=== PATIENT | male | born 1955 | race Caucasian/White ===

== ENCOUNTER 2018-06-01 05:14 | Emergency (ER) | payer MEDICARE ==
[2018-06-01] MEDS ORDERED: Sodium Chloride 0.9% 1000 ML 1,000 ML IV STA (05:37)
[2018-06-01] MEDS ORDERED: Hydromorphone 1 mg/ml Ampule IV ONE (05:37)
[2018-06-01] MEDS ORDERED: Zofran 4 MG/2 ML VIAL IV ONE (05:37)
[2018-06-01] MEDS ORDERED: Sodium Chloride 0.9% 1000 ML 1,000 ML ONE (05:43)
[2018-06-01] MEDS ORDERED: Zofran 4 MG/2 ML VIAL ONE (05:43)
[2018-06-01] MEDS ORDERED: Hydromorphone 1 mg/ml Ampule ONE (05:43)
[2018-06-01 05:46] LABS: BASOPHIL % 0.3 % (0.0-0.4); Basophil (Absolute #) 0.03 (0-0.4); Eosinophil (Absolute #) 0.19 (0-0.5); Granulocyte Absolute (ANC) 6.37 (1.4-6.9); Granulocytes % 67.2 % (36.0-66.0); Hematocrit 44.7 % (42-50); Lymphocyte (Absolute #) 1.95 (1.0-4.6); Lymphocytes % 20.5 % (24.0-44.0); Mean Corpuscular Hemoglobin 28.5 pg (26-32); Mean Corpuscular Hgb Concent. 33.6 g/dl (32-36); Mean Platelet Volume 10.1 fl (6-9.5); Monocyte (Absolute #) 0.95 (0.0-1.3); Platelet Count 198 K/mm3 (150-450); Red Blood Count 5.26 M/mm3 (4.1-5.6); Red Cell Distribution Width 12.9 % (11.5-14.0); White Blood Count 9.5 K/mm3 (4.0-10.5)
--- NOTE | 2018-06-01 05:52 | ERPHSYRPT ---
- History of Present Illness Historian: patient Exam Limitations: clinical condition (PATIENT ) Patient Subjective Stated Complaint: woke up with pain in the right lower abdomen Triage Nursing Assessment: Pt arrived by EMS with c/o waking up with pain in the lower right quadrant of abdomen, hx of kidney stones, pain with palpation, unsure if radiates to the back due to chronic back pain, bowel sounds heard in all 4 quadrants Timing/Duration: yesterday Activities at Onset: none Quality: sharpness, stabbing Abdominal Pain Onset Location: RLQ, generalized abdomen Pain Radiation: no radiation Severity of Pain-Max: moderate Severity of Pain-Current: moderate Modifying Factors: Improves With: nothing, analgesics Associated Symptoms: back, nausea Hx Tetanus, Diphtheria Vaccination/Date Given: Yes Hx Influenza Vaccination/Date Given: No Hx Pneumococcal Vaccination/Date Given: No <CHERYL SANCHEZ - Last Filed: 06/01/18 06:53> <HARMAN RUDD - Last Filed: 06/01/18 07:21> - History of Present Illness Time Seen by Provider: 06/01/18 05:30 Physician History: PATIENT WITH HISTORY OF KIDNEY STONES, DEGENERATIVE DISC DISEASE, COMPLAINS OF RIGHT LOWER ABDOMINAL PAINS SINCE 2129, ASSOCIATED WITH NAUSEA, PAIN SCALE 7/10. DENIES FEVER, CHILLS, URINARY SYMPTOMS. PATIENT HAS HAD PREVIOUS LITHROTRIPSY AND RENAL STENT INSERTION. (CHERYL SANCHEZ) Allergies/Adverse Reactions: No Known Drug Allergies Allergy (Verified 06/01/18 05:25) Home Medications: Hydrocodone/Acetaminophen [[place] 5-325 Tablet] 1 each PO Q6H 06/01/18 [History] - Review of Systems Constitutional: No Fever, No Chills Eyes: No Symptoms Ears, Nose, & Throat: No Symptoms Respiratory: No Symptoms, No Cough, No Dyspnea Cardiac: No Symptoms, No Chest Pain, No Edema, No Syncope Abdominal/Gastrointestinal: Abdominal Pain, No Nausea, No Vomiting, No Diarrhea Genitourinary Symptoms: No Symptoms, No Dysuria Musculoskeletal: No Symptoms, No Back Pain, No Neck Pain Skin: No Rash Neurological: No Dizziness, No Focal Weakness, No Sensory Changes Psychological: No Symptoms Endocrine: No Symptoms All Other Systems: Reviewed and Negative <CHERYL SANCHEZ - Last Filed: 06/01/18 06:53> - Past Medical History Pertinent Past Medical History: Yes Neurological History: No Pertinent History ENT History: No Pertinent History Cardiac History: No Pertinent History, Myocardial Infarction ([place]), Other Respiratory History: No Pertinent History Endocrine Medical History: No Pertinent History Musculoskeletal History: No Pertinent History GI Medical History: No Pertinent History, GI Bleed History: No Pertinent History Psycho-Social History: No Pertinent History Male Reproductive Disorders: No Pertinent History Other Medical History: kidney stones x 3,mvp, reports heart attack years ago - Past Surgical History Past Surgical History: Yes Neuro Surgical History: No Pertinent History Cardiac: No Pertinent History Respiratory: No Pertinent History Gastrointestinal: Appendectomy, Bowel Surgery Genitourinary: Other Musculoskeletal: Orthopedic Surgery Male Surgical History: No Pertinent History Other Surgical History: Pt states "i had to have ,because of infection, some of my bowel and piece of the bladder removed and also appy at the same time". States "kyphoplasty L-3 and either L-1 or 2 2015 - Social History Smoking Status: Current every day smoker How long have you smoked: 50 yrs Exposure to second hand smoke: Yes Drug Use: none Patient Lives Alone: Yes <LAURACHERYL Filed: 06/01/18 06:53> - Physical Exam General Appearance: moderate distress Eye Exam: PERRL/EOMI, eyes nml inspection Ears, Nose, Throat Exam: normal ENT inspection, pharynx normal, moist mucous membranes Neck Exam: normal inspection, non-tender, supple, full range of motion Respiratory Exam: normal breath sounds, lungs clear, No respiratory distress Cardiovascular Exam: regular rate/rhythm, normal heart sounds Gastrointestinal/Abdomen Exam: soft, normal bowel sounds, tenderness (RIGHT LOWER QUAD TENDERNESS), No mass Back Exam: normal inspection, normal range of motion, No CVA tenderness, No vertebral tenderness Extremity Exam: normal inspection, normal range of motion, pelvis stable Neurologic Exam: alert, oriented x 3, cooperative, normal mood/affect, nml cerebellar function, sensation nml, No motor deficits Skin Exam: normal color, warm, dry SpO2 Interpretation: normal SpO2: 97 Oxygen Delivery: Room Air <LAURACHERYL Filed: 06/01/18 06:53> - Nursing Vital Signs Nursing Vital Signs: Initial Vital Signs Temperature 97.9 F 06/01/18 05:16 Pulse Rate 86 06/01/18 05:16 Blood Pressure 178/106 06/01/18 05:16 O2 Sat by Pulse Oximetry 97 06/01/18 05:16 Pain Scale Pain Intensity 8 <CHERYL SANCHEZ - Last Filed: 06/01/18 06:53> - Course Nursing assessment & vital signs reviewed: Yes <HRAMAN RUDD - Last Filed: 06/01/18 07:21> Ordered Tests: Active Orders 24 hr Category Date Time Status Clean Catch Urine Specimen STAT Care 06/01/18 05:37 Active IV Insertion STAT Care 06/01/18 05:37 Active ABDOMEN AND PELVIS W/0 CONTRAS [CT] Stat Exams 06/01/18 05:38 Taken AMYLASE Stat Lab 06/01/18 05:25 Completed BLOOD CULTURE Stat Lab 06/01/18 05:58 Received CBC W DIFF Stat Lab 06/01/18 05:25 Completed CMP Stat Lab 06/01/18 05:25 Completed LIPASE Stat Lab 06/01/18 05:25 Completed UA W/RFX UR CULTURE Stat Lab 06/01/18 06:50 Ordered Medication Summary Generic Name Dose Route Start Last Admin Trade Name Freq PRN Reason Stop Dose Admin Sodium Chloride 1,000 mls @ 500 mls/hr 06/01/18 05:37 06/01/18 05:46 Sodium Chloride 0.9% 1000 Ml IV 06/01/18 07:36 500 mls/hr .Q2H STA Administration Discontinued Medications Generic Name Dose Route Start Last Admin Trade Name Freq PRN Reason Stop Dose Admin Hydromorphone HCl 1 mg 06/01/18 05:37 06/01/18 05:47 Hydromorphone 1 Mg/Ml Ampule IV 06/01/18 05:38 1 mg STAT ONE Administration Hydromorphone HCl Confirm 06/01/18 05:43 Hydromorphone 1 Mg/Ml Ampule Administered 06/01/18 05:44 Dose 1 mg .ROUTE .STK-MED ONE Sodium Chloride Confirm 06/01/18 05:43 Sodium Chloride 0.9% 1000 Ml Administered 06/01/18 05:44 Dose 1,000 mls @ ud .ROUTE .STK-MED ONE Ondansetron HCl 4 mg 06/01/18 05:37 06/01/18 05:47 Zofran 4 Mg/2 Ml Vial IV 06/01/18 05:38 4 mg STAT ONE Administration Ondansetron HCl Confirm 06/01/18 05:43 Zofran 4 Mg/2 Ml Vial Administered 06/01/18 05:44 Dose 4 mg .ROUTE .STK-MED ONE Lab/Rad Data: Laboratory Result Diagrams 06/01/18 05:25 06/01/18 05:25 Laboratory Results 06/01/18 06/01/18 Range/Units 05:25 05:25 WBC 9.5 (4.0-10.5) K/mm3 RBC 5.26 (4.1-5.6) M/mm3 Hgb 15.0 (12.5-18.0) gm/dl Hct 44.7 (42-50) % MCV 85.0 (78-100) fl MCH 28.5 (26-32) pg MCHC 33.6 (32-36) g/dl RDW 12.9 (11.5-14.0) % Plt Count 198 (150-450) K/mm3 MPV 10.1 H (6-9.5) fl Gran % 67.2 H (36.0-66.0) % Eos # (Auto) 0.19 (0-0.5) Absolute Lymphs (auto) 1.95 (1.0-4.6) Absolute Monos (auto) 0.95 (0.0-1.3) Lymphocytes % 20.5 L (24.0-44.0) % Monocytes % 10.0 (0.0-12.0) % Eosinophils % 2.0 (0.00-5.0) % Basophils % 0.3 (0.0-0.4) % Absolute Granulocytes 6.37 (1.4-6.9) Basophils # 0.03 (0-0.4) Sodium 138 (137-145) mmol/L Potassium 3.6 (3.5-5.1) mmol/L Chloride 103 (98-107) mmol/L Carbon Dioxide 26 (22-30) mmol/L Anion Gap 11.8 (5-15) MEQ/L BUN 15 (9-20) mg/dL Creatinine 0.92 (0.66-1.25) mg/dL Estimated GFR > 60.0 ML/MIN Glucose 95 (74-106) mg/dL Calcium 9.0 (8.4-10.2) mg/dL Total Bilirubin 0.60 (0.2-1.3) mg/dL AST 50 (17-59) U/L ALT 39 (0-50) U/L Alkaline Phosphatase 116 (38-126) U/L Serum Total Protein 6.7 (6.3-8.2) g/dL Albumin 4.0 (3.5-5.0) g/dL Amylase 84 (30-110) U/L Lipase 464 H (23-300) U/L ct scan abd/pelvis-mild right hydronephrosis and hydroureter with 3mm prox right ureteral stone (HARMAN RUDD) <CHERYL SANCHEZ - Last Filed: 06/01/18 06:53> - Progress Counseled pt/family regarding: lab results, diagnosis, need for follow-up <HARMAN RUDD - Last Filed: 06/01/18 07:21> - Progress Progress Note: 06/01/18 06:53 IV NORMAL SALINE 500ML/HR, ZOFRAN 4MG, DILAUDID 1MG IV, PAIN MARKEDLY IMPROVED. 06/01/18 07:00, PATIENT ENDORSED TO DR RUDD AT 0700 (CHERYL SANCHEZ) 06/01/18 07:17 pt very comfortable. (HARMAN RUDD) <CHERYL SANCHEZ - Last Filed: 06/01/18 06:53> - Departure Time of Disposition: 07:18 Departure Disposition: Home Critical Care Time: No <HARMAN RUDD - Last Filed: 06/01/18 07:21> - Departure Clinical Impression: Ureterolithiasis Condition: Stable Referrals: CLINTON JOHNSON [Primary Care Provider] - Additional Instructions: drink plenty of fluids. use your hydrocodone as prescribed. follow up with urologist for further management.
[2018-06-01 05:58] LABS: ALKALINE PHOSPHATASE 116 U/L (38-126); AMYLASE 84 U/L (30-110); ANION GAP 11.8 MEQ/L (5-15); BLOOD UREA NITROGEN 15 mg/dL (9-20); CHLORIDE 103 mmol/L (98-107); Carbon Dioxide 26 mmol/L (22-30); Creatinine 1 0.92 mg/dL (0.66-1.25); Glucose 95 mg/dL (74-106); LIPASE 464 U/L (23-300); Potassium 3.6 mmol/L (3.5-5.1); SGOT/AST 50 U/L (17-59); SGPT/ALT 39 U/L (0-50); SODIUM 138 mmol/L (137-145); Total Protein 6.7 g/dL (6.3-8.2)
[2018-06-01 07:11] LABS: Appearance CLOUDY (CLEAR); Bilirubin NEGATIVE (NEGATIVE); Blood LARGE Ery/ul (0-5); Glucose NEGATIVE (NEGATIVE); Ketones NEGATIVE (NEGATIVE); Leukocyte Esterase NEGATIVE (NEGATIVE); Nitrite NEGATIVE (NEGATIVE); Protein,Urine Dip 100 (Negative); Specific Gravity 1.023 (1.005-1.025); Urobilinogen NEGATIVE mg/dL (0-1)
[2018-06-01 08:05] VITALS: BP 166/86; PULSE 88; O2SAT 94
--- NOTE | 2018-06-01 09:36 | XRAY ---
Indication: Right lower quadrant pain. History of stones. Multiple contiguous axial images obtained through the abdomen and pelvis without contrast using renal stone protocol. Comparison: March 11, 2013. Lung bases demonstrates minimal bibasilar dependent atelectasis with stable tiny left posterior calcified granuloma. No infiltrate or effusion. Heart is not enlarged. There is now a 3 mm calculus in the proximal right ureter, approximately L3 level with mild hydronephrosis and mild perinephric stranding. Stable nonobstructing left renal micro-calculus. Noncontrasted stomach and bowel loops appear nonobstructed. Previous reported appendectomy. Again mild scattered descending and sigmoid diverticulosis. No free fluid/air. Remaining liver, gallbladder, pancreas, spleen, adrenal glands, kidneys, ureters, and bladder appear unremarkable for noncontrast exam. There remains mild aortoiliac calcifications without AAA. Osseous structures intact with stable L5-S1 degenerative changes. Interval L1/L2 kyphoplasty with right L1/L2 cement material extending beyond the anterior bony cortex. Stable small fatty umbilical hernia. Impression: 1. New 3 mm proximal right ureter calculus producing obstructive uropathy as detailed. Stable nonobstructing left renal micro-calculus. 2. Stable colonic diverticulosis and small fatty umbilical hernia. 3. Interval L1/L2 kyphoplasty. Comment: Preliminary interpretation was made by [facility]. No critical discrepancy. CT DI 22.89
== END 2018-06-01 08:02 | disposition home or self-care (01) ==
LOC: ED 05:14
DX: N13.2 Hydronephrosis with renal and ureteral calculous obstruction (principal); Z87.442 Personal history of urinary calculi
CPT/HCPCS: 36000; 36415; 74176; 80053; 81001; 82150; 83690; 85025; 87040; 87086; 96360; 96361; 96374; 96375; 99284; J1170; J2405

== ENCOUNTER 2019-10-18 10:46 | Emergency (ER) | payer MEDICARE ==
[2019-10-18] MEDS ORDERED: TYLENOL 325 MG PO ONE (11:19)
[2019-10-18] MEDS ORDERED: DUONEB 0.5-3 MG/3 ml Neb IH ONE ×2 (11:20→11:30)
[2019-10-18] MEDS ORDERED: solu-MEDROL 125 MG IV ONE (11:20)
--- NOTE | 2019-10-18 11:22 | ERPHSYRPT ---
- History of Present Illness Time Seen by Provider: 10/18/19 11:11 Source: patient Exam Limitations: no limitations Patient Subjective Stated Complaint: states since tuesday has had a cough and fever. also having sharp pain under left scapula from coughing. states cough is nonproductive. Triage Nursing Assessment: ambulated to room per self. skin w/d, color normal. resp nonlabored. dry occasional cough noted. Physician History: 64 years old male with history of tobacco abuse presented in the ER with chief complaint of fever chills, nasal congestion/sore throat and worsening dry hacking cough for the last 4 days. Patient has been using [id number] meds with no significant relief. Because of repeated coughing he is having chest soreness and feels as if he pulled his back muscles as well. Denies any abdominal pain nausea or vomiting. Minimal shortness of breath which is not any worse than usual. Denies any chest pain otherwise. No palpitations. Timing/Duration: day(s) (4) Cough Quality/Degree: moderate, dry cough Possible Cause: no prior episodes Associated Symptoms: chest pain/soreness, cough, muscle aches, nasal congestion Allergies/Adverse Reactions: No Known Drug Allergies Allergy (Verified 10/18/19 11:08) Hx Tetanus, Diphtheria Vaccination/Date Given: Yes Hx Influenza Vaccination/Date Given: No Hx Pneumococcal Vaccination/Date Given: No - Review of Systems Constitutional: Fever, Chills, Fatigue, Malaise Eyes: No Symptoms Ears, Nose, & Throat: No Symptoms Respiratory: No Symptoms, Cough, Dyspnea Cardiac: No Symptoms Abdominal/Gastrointestinal: No Symptoms Genitourinary Symptoms: No Symptoms Musculoskeletal: Back Pain, Myalgias Skin: No Symptoms Neurological: No Symptoms Psychological: No Symptoms Endocrine: No Symptoms Hematologic/Lymphatic: No Symptoms Immunological/Allergic: No Symptoms - Past Medical History Pertinent Past Medical History: Yes Neurological History: No Pertinent History ENT History: No Pertinent History Cardiac History: No Pertinent History, Myocardial Infarction ([place]), Other Respiratory History: No Pertinent History Endocrine Medical History: No Pertinent History Musculoskeletal History: No Pertinent History GI Medical History: No Pertinent History, GI Bleed History: No Pertinent History Psycho-Social History: No Pertinent History Male Reproductive Disorders: No Pertinent History Other Medical History: kidney stones x 3,mvp, reports heart attack years ago - Past Surgical History Past Surgical History: Yes Neuro Surgical History: No Pertinent History Cardiac: No Pertinent History Respiratory: No Pertinent History Gastrointestinal: Appendectomy, Bowel Surgery Genitourinary: Other Musculoskeletal: Orthopedic Surgery Male Surgical History: No Pertinent History Other Surgical History: Pt states "i had to have ,because of infection, some of my bowel and piece of the bladder removed and also appy at the same time". States "kyphoplasty L-3 and either L-1 or 2 2015 - Social History Smoking Status: Former smoker How long have you smoked: 50 yrs Exposure to second hand smoke: No Drug Use: none Patient Lives Alone: Yes - Nursing Vital Signs Nursing Vital Signs: Initial Vital Signs Temperature 100.4 F 10/18/19 10:57 Pulse Rate 106 H 10/18/19 10:57 Respiratory Rate 18 10/18/19 10:57 Blood Pressure 166/93 10/18/19 10:57 O2 Sat by Pulse Oximetry 95 10/18/19 10:57 Pain Scale Pain Intensity 0 - Physical Exam General Appearance: no apparent distress Eye Exam: PERRL/EOMI, eyes nml inspection Ears, Nose, Throat Exam: pharyngeal erythema Neck Exam: normal inspection, non-tender, supple, full range of motion Respiratory Exam: normal breath sounds, lungs clear, respiratory distress Cardiovascular Exam: regular rate/rhythm, normal heart sounds Gastrointestinal/Abdomen Exam: soft, normal bowel sounds Back Exam: muscle spasm, No CVA tenderness Extremity Exam: normal inspection Neurologic Exam: alert, oriented x 3, cooperative Skin Exam: normal color SpO2 Interpretation: normal SpO2: 95 O2 Delivery: Room Air - Course Nursing assessment & vital signs reviewed: Yes EKG Interpreted by Me: RATE (99), NORMAL AXIS, NORMAL INTERVALS, NORMAL QRS, Q- wave (inf leads) Ordered Tests: Active Orders 24 hr Category Date Time Status EKG-ER Only STAT Care 10/18/19 11:23 Active IV Insertion STAT Care 10/18/19 11:19 Active CHEST 2 VIEWS (PA AND LAT) Stat Exams 10/18/19 11:19 Completed CBC W DIFF Stat Lab 10/18/19 11:34 Completed CMP Stat Lab 10/18/19 11:34 Completed Lactic Acid Stat Lab 10/18/19 11:34 Completed Manual Differential NC Stat Lab 10/18/19 11:34 Completed Peak Expiratory Flow Rate ONCE RT 10/18/19 11:39 Completed Respiratory Therapy Assessment DAILY RT 10/18/19 11:39 Completed Medication Summary Discontinued Medications Generic Name Dose Route Start Last Admin Trade Name Cecile PRN Reason Stop Dose Admin Acetaminophen 975 mg 10/18/19 11:19 10/18/19 11:26 Tylenol 325 Mg PO 10/18/19 11:20 975 mg STAT ONE Administration Acetaminophen Confirm 10/18/19 11:25 Tylenol 325 Mg Administered 10/18/19 11:26 Dose 975 mg .ROUTE .STK-MED ONE Albuterol/Ipratropium 3 ml 10/18/19 11:20 10/18/19 11:33 Duoneb 0.5-3 Mg/3 Ml Neb IH 10/18/19 11:21 3 ml STAT ONE Administration Albuterol/Ipratropium Confirm 10/18/19 11:30 Duoneb 0.5-3 Mg/3 Ml Neb Administered 10/18/19 11:31 Dose 3 ml IH .STK-MED ONE Methylprednisolone Sodium Succinate 125 mg 10/18/19 11:20 10/18/19 11:27 Solu-Medrol 125 Mg IV 10/18/19 11:21 125 mg STAT ONE Administration Methylprednisolone Sodium Succinate Confirm 10/18/19 11:25 Solu-Medrol 125 Mg Administered 10/18/19 11:26 Dose 125 mg .ROUTE .STK-MED ONE Oseltamivir Phosphate 75 mg 10/18/19 13:54 10/18/19 14:03 Tamiflu 75mg Capsule PO 10/18/19 13:55 75 mg STAT ONE Administration Lab/Rad Data: Laboratory Result Diagrams 10/18/19 11:34 10/18/19 11:34 Laboratory Results 10/18/19 10/18/19 10/18/19 Range/Units Unknown 12:20 11:34 WBC (4.0-10.5) K/mm3 RBC (4.1-5.6) M/mm3 Hgb (12.5-18.0) gm/dl Hct (42-50) % MCV (78-100) fl MCH (26-32) pg MCHC (32-36) g/dl RDW (11.5-14.0) % Plt Count (150-450) K/mm3 MPV (7.5-11.0) fl Sodium 137 (137-145) mmol/L Potassium 3.6 (3.5-5.1) mmol/L Chloride 105 (98-107) mmol/L Carbon Dioxide 24 (22-30) mmol/L Anion Gap 11.9 (5-15) MEQ/L BUN 12 (9-20) mg/dL Creatinine 0.94 (0.66-1.25) mg/dL Estimated GFR > 60.0 ML/MIN Glucose 112 H (74-106) mg/dL Lactic Acid (0.4-2.0) Calcium 8.4 (8.4-10.2) mg/dL Total Bilirubin 0.60 (0.2-1.3) mg/dL AST 52 (17-59) U/L ALT 35 (0-50) U/L Alkaline Phosphatase 110 (38-126) U/L Serum Total Protein 7.3 (6.3-8.2) g/dL Albumin 4.1 (3.5-5.0) g/dL Influenza Type A Ag NEGATIVE (NEGATIVE) Influenza Type B Ag POSITIVE (NEGATIVE) RSV (PCR) NEGATIVE (Negative) Group A Strep Antibody NEGATIVE (NEGATIVE) 10/18/19 10/18/19 Range/Units 11:34 11:34 WBC 3.9 L (4.0-10.5) K/mm3 RBC 5.36 (4.1-5.6) M/mm3 Hgb 15.0 (12.5-18.0) gm/dl Hct 45.0 (42-50) % MCV 84.0 (78-100) fl MCH 28.0 (26-32) pg MCHC 33.3 (32-36) g/dl RDW 13.0 (11.5-14.0) % Plt Count 154 (150-450) K/mm3 MPV 10.7 (7.5-11.0) fl Sodium (137-145) mmol/L Potassium (3.5-5.1) mmol/L Chloride (98-107) mmol/L Carbon Dioxide (22-30) mmol/L Anion Gap (5-15) MEQ/L BUN (9-20) mg/dL Creatinine (0.66-1.25) mg/dL Estimated GFR ML/MIN Glucose (74-106) mg/dL Lactic Acid 1.2 (0.4-2.0) Calcium (8.4-10.2) mg/dL Total Bilirubin (0.2-1.3) mg/dL AST (17-59) U/L ALT (0-50) U/L Alkaline Phosphatase (38-126) U/L Serum Total Protein (6.3-8.2) g/dL Albumin (3.5-5.0) g/dL Influenza Type A Ag (NEGATIVE) Influenza Type B Ag (NEGATIVE) RSV (PCR) (Negative) Group A Strep Antibody (NEGATIVE) - Progress Progress: improved, re-examined Air Movement: good Progress Note: 64 years old is evaluated for fever chills and cough. He is given breathing treatment and steroid, on reevaluation his wheezing is better. Chest x-ray to rule out any pneumonic infiltrates. He has a positive influenza B and started on Tamiflu. I would also give him a short course of steroid and inhaler to go home as patient continues to smoke and has COPD with some exacerbation. I do not think patient needs admission. He is maintaining his oxygen saturation at room air and is not in any distress at all. Stable for discharge with outpatient follow-up. 10/18/19 14:04 Blood Culture(s) Obtained: No Antibiotics given: No Counseled pt/family regarding: lab results, diagnosis, need for follow-up, rad results, smoking cessation - Departure Departure Disposition: Home Clinical Impression: Influenza B, COPD exacerbation Condition: Stable Critical Care Time: No Referrals: CLINTON JOHNSON [Primary Care Provider] - Follow Up with PCP/3 days Instructions: Chronic Obstructive Pulmonary Disease, Flu, Adult (DC) Additional Instructions: Take Tylenol as needed. Follow-up with your primary care for reevaluation. Return to ER for any worsening. Prescriptions: Albuterol 8 gm Mdi Hfa [Ventolin Hfa MDI] 8 gm IH Q4H #1 hfa.aer.ad Oseltamivir 75 mg [Tamiflu 75MG Capsule] 75 mg PO BID #9 cap Prednisone 50 mg PO DAILY #5 tablet
[2019-10-18] MEDS ORDERED: solu-MEDROL 125 MG ONE (11:25)
[2019-10-18] MEDS ORDERED: TYLENOL 325 MG ONE (11:25)
[2019-10-18 11:47] LABS: Mean Corpuscular Hgb Concent. 33.3 g/dl (32-36); Mean Platelet Volume 10.7 fl (7.5-11.0); Platelet Count 154 K/mm3 (150-450); Red Blood Count 5.36 M/mm3 (4.1-5.6); White Blood Count 3.9 K/mm3 (4.0-10.5)
[2019-10-18 11:49] LABS: ALBUMIN 4.1 g/dL (3.5-5.0); ALKALINE PHOSPHATASE 110 U/L (38-126); ANION GAP 11.9 MEQ/L (5-15); BLOOD UREA NITROGEN 12 mg/dL (9-20); CHLORIDE 105 mmol/L (98-107); Calcium 8.4 mg/dL (8.4-10.2); Carbon Dioxide 24 mmol/L (22-30); Creatinine 1 0.94 mg/dL (0.66-1.25); Glucose 112 mg/dL (74-106); Potassium 3.6 mmol/L (3.5-5.1); SGOT/AST 52 U/L (17-59); SGPT/ALT 35 U/L (0-50); SODIUM 137 mmol/L (137-145); Total Protein 7.3 g/dL (6.3-8.2)
--- NOTE | 2019-10-18 12:18 | XRAY ---
Exam: Two-view chest from 10/18/2019. Comparison: None. Indication: 64-year-old male with cough for 5 days, fever, no history of surgery, smoker. Findings: Upright PA and lateral chest films are submitted for evaluation. The heart size and contour are normal. Atherosclerotic calcification is seen within the aortic knob. The refugio and mediastinal structures appear unremarkable. The lungs are well inflated. No air space infiltrates, vascular congestion, pneumothorax, or pleural fluid is seen. There is minor eventration of the anterior aspect of the right hemidiaphragm. EKG leads are seen in place. There appears to have probably been prior vertebroplasty within the upper lumbar spine. Correlate with history. The bones are demineralized, but otherwise appear intact. Impression: 1. No infiltrates to suggest pneumonia or other acute cardiopulmonary disease is seen.
[2019-10-18 13:00] VITALS: O2SAT 95
[2019-10-18 13:50] LABS: INFLUENZA A NEGATIVE (NEGATIVE)
[2019-10-18 13:51] LABS: INFLUENZA B POSITIVE (NEGATIVE); RESPIRATORY SYNCTIAL VIRUS NEGATIVE (Negative)
[2019-10-18] MEDS ORDERED: Tamiflu 75MG Capsule PO ONE ×2 (13:54→14:02)
[2019-10-18 14:04] VITALS: BP 132/85; PULSE 81
[2019-10-18 14:31] LABS: BAND 4 % (0.0-2.0); Lymphocytes 39 % (24-44); Monocyte 6 % (0.0-12.0); Neutrophils 51 % (36.-66.); Platelet Estimate NORMAL (NORMAL); Total Cells Counted 100
== END 2019-10-18 14:17 | disposition home or self-care (01) ==
LOC: ED 10:46
DX: J11.1 Influenza due to unidentified influenza virus with other respiratory manifestations (principal); J44.1 Chronic obstructive pulmonary disease with (acute) exacerbation
CPT/HCPCS: 36000; 36415; 71046; 80053; 83605; 85025; 87631; 87651; 93005; 94150; 94640; 96374; 99284; J2930; A9270-GY

== ENCOUNTER 2020-10-17 06:24 | Emergency (ER) | payer MEDICARE ==
[2020-10-17 06:43] VITALS: O2SAT 95
[2020-10-17] MEDS ORDERED: Hydromorphone 1 mg/ml Injection IV ONE (07:16)
[2020-10-17] MEDS ORDERED: Sodium Chloride 0.9% 1000 ML 1,000 ML IV STA (07:16)
[2020-10-17] MEDS ORDERED: Zofran 4 MG/2 ML VIAL IV ONE (07:16)
--- NOTE | 2020-10-17 07:16 | ERPHSYRPT ---
- History of Present Illness Time Seen by Provider: 10/17/20 07:00 Historian: patient Exam Limitations: no limitations Patient Subjective Stated Complaint: pt states he began having abd pain below his umbilicus last night. states pain is sharp with cough and worse when sitting up straight Triage Nursing Assessment: pt alert and oriented, answers questions approp. pt arrive per ambulance, transfers to stretcher with assist of 3. pt tolerated wel l. skin warm and dry. respirations nonlabored. abd soft. pt reprts tenderness to lt lower with light palpation. bowel sounds present and hypo. pt reports passing flatus and having loose bowel movements which is his normal. Physician History: This is a 65-year-old white male who presents with 1 day history of worsening infrapubic abdominal pain. Patient has had a history of's bowel resection, appendectomy and partial bladder resection in the past. Approximately 2 to 3 months ago patient was at [facility] in an inpatient setting because of diverticulitis. Patient smokes tobacco and has a history of COPD as well as coronary artery disease. He said a history of ureteral stones as well. Patient denies shortness of breath, he denies cough, he denies chest pain. He has had no fevers or chills. Timing/Duration: yesterday Activities at Onset: none Quality: sharpness, stabbing Abdominal Pain Onset Location: other (Bilateral inferior pubic) Pain Radiation: no radiation Severity of Pain-Max: moderate Severity of Pain-Current: moderate Modifying Factors: Improves With: nothing Associated Symptoms: denies symptoms Previous symptoms: same symptoms as today Allergies/Adverse Reactions: No Known Drug Allergies Allergy (Verified 10/17/20 06:43) Hx Tetanus, Diphtheria Vaccination/Date Given: Yes Hx Influenza Vaccination/Date Given: No Hx Pneumococcal Vaccination/Date Given: No Immunizations Up to Date: Yes Travel Risk - International Travel Have you traveled outside of the country in past 3 weeks: No - Coronavirus Screening Are you exhibiting any of the following symptoms?: No Close contact with a COVID-19 positive Pt in past 14-21 Days: No - Review of Systems Constitutional: No Symptoms Eyes: No Symptoms Ears, Nose, & Throat: No Symptoms Respiratory: No Symptoms Cardiac: No Symptoms Abdominal/Gastrointestinal: Abdominal Pain, No Nausea, No Vomiting, No Diarrhea Genitourinary Symptoms: No Symptoms Musculoskeletal: No Symptoms Skin: No Symptoms Neurological: No Symptoms Psychological: No Symptoms Endocrine: No Symptoms Hematologic/Lymphatic: No Symptoms Immunological/Allergic: No Symptoms All Other Systems: Reviewed and Negative - Past Medical History Pertinent Past Medical History: Yes Neurological History: No Pertinent History ENT History: No Pertinent History Cardiac History: No Pertinent History, Myocardial Infarction (DE), Other Respiratory History: No Pertinent History Endocrine Medical History: No Pertinent History Musculoskeletal History: No Pertinent History GI Medical History: No Pertinent History, GI Bleed History: No Pertinent History Psycho-Social History: No Pertinent History Male Reproductive Disorders: No Pertinent History Other Medical History: kidney stones x 3,mvp, reports heart attack years ago - Past Surgical History Past Surgical History: Yes Neuro Surgical History: No Pertinent History Cardiac: No Pertinent History Respiratory: No Pertinent History Gastrointestinal: Appendectomy, Bowel Surgery Genitourinary: Other Musculoskeletal: Orthopedic Surgery Male Surgical History: No Pertinent History Other Surgical History: Pt states "i had to have ,because of infection, some of my bowel and piece of the bladder removed and also appy at the same time". States "kyphoplasty L-3 and either L-1 or 2 2015. back surgery x4 - Social History Smoking Status: Current every day smoker How long have you smoked: 50 yrs Exposure to second hand smoke: No Drug Use: none Patient Lives Alone: Yes - Nursing Vital Signs Nursing Vital Signs: Initial Vital Signs Temperature 98.1 F 10/17/20 06:26 Pulse Rate 95 H 10/17/20 06:26 Respiratory Rate 16 10/17/20 06:26 Blood Pressure 173/97 10/17/20 06:26 O2 Sat by Pulse Oximetry 95 10/17/20 06:26 Pain Scale Pain Intensity 0 - Physical Exam General Appearance: no apparent distress, alert, anxiety Eye Exam: PERRL/EOMI, eyes nml inspection Ears, Nose, Throat Exam: normal ENT inspection, moist mucous membranes Neck Exam: normal inspection, non-tender, supple, full range of motion Respiratory Exam: normal breath sounds, lungs clear, airway intact, No chest tenderness, No respiratory distress Cardiovascular Exam: regular rate/rhythm, normal heart sounds, normal peripheral pulses Gastrointestinal/Abdomen Exam: soft, normal bowel sounds, tenderness (Bilateral infraumbilical), guarding, No distention, No rebound Male Genitalia Exam: normal genitalia, No hernia, No testicular tenderness Rectal Exam: not done Back Exam: normal inspection, normal range of motion, No CVA tenderness, No vertebral tenderness Extremity Exam: normal inspection, normal range of motion, pelvis stable Neurologic Exam: alert, oriented x 3, cooperative, bend up II-XII nml as tested, normal mood/affect, nml cerebellar function, nml station & gait, sensation nml Skin Exam: normal color, warm, dry Lymphatic Exam: No adenopathy SpO2 Interpretation: normal SpO2: 95 - Course Nursing assessment & vital signs reviewed: Yes Ordered Tests: Active Orders 24 hr Category Date Time Status Catheter-[place] Newman STAT Care 10/17/20 07:16 Active IV Insertion STAT Care 10/17/20 07:16 Active ABDOMEN AND PELVIS W/0 CONTRAS [CT] Stat Exams 10/17/20 07:16 Taken AMYLASE Stat Lab 10/17/20 07:30 Completed CBC W DIFF Stat Lab 10/17/20 07:30 Completed CMP Stat Lab 10/17/20 07:30 Completed CULTURE,URINE Stat Lab 10/17/20 07:16 Ordered LIPASE Stat Lab 10/17/20 07:30 Completed Lactic Acid Stat Lab 10/17/20 07:30 Completed UA W/RFX UR CULTURE Stat Lab 10/17/20 07:27 Completed Medication Summary Discontinued Medications Generic Name Dose Route Start Last Admin Trade Name Freq PRN Reason Stop Dose Admin Hydromorphone HCl 1 mg 10/17/20 07:16 10/17/20 07:25 Hydromorphone 1 Mg/Ml Injection IV 10/17/20 07:17 1 mg STAT ONE Administration Hydromorphone HCl Confirm 10/17/20 07:23 Hydromorphone 1 Mg/Ml Injection Administered 10/17/20 07:24 Dose 1 mg .ROUTE .STK-MED ONE Sodium Chloride 1,000 mls @ 999 mls/hr 10/17/20 07:16 10/17/20 08:45 Sodium Chloride 0.9% 1000 Ml IV 10/17/20 08:16 Infused .Q1H1M STA Infusion Sodium Chloride Confirm 10/17/20 07:23 Sodium Chloride 0.9% 1000 Ml Administered 10/17/20 07:24 Dose 1,000 mls @ ud .ROUTE .STK-MED ONE Ondansetron HCl 4 mg 10/17/20 07:16 10/17/20 07:24 Zofran 4 Mg/2 Ml Vial IV 10/17/20 07:17 4 mg STAT ONE Administration Ondansetron HCl Confirm 10/17/20 07:22 Zofran 4 Mg/2 Ml Vial Administered 10/17/20 07:23 Dose 4 mg .ROUTE .STK-MED ONE Lab/Rad Data: Laboratory Result Diagrams 10/17/20 07:30 10/17/20 07:30 Laboratory Results 10/17/20 10/17/20 10/17/20 Range/Units 07:30 07:30 07:30 WBC 10.9 H (4.0-10.5) K/mm3 RBC 4.95 (4.1-5.6) M/mm3 Hgb 13.8 (12.5-18.0) gm/dl Hct 42.8 (42-50) % MCV 86.5 (78-100) fl MCH 27.9 (26-32) pg MCHC 32.2 (32-36) g/dl RDW 12.8 (11.5-14.0) % Plt Count 213 (150-450) K/mm3 MPV 9.5 (7.5-11.0) fl Gran % 68.9 H (36.0-66.0) % Eos # (Auto) 0.12 (0-0.5) Absolute Lymphs (auto) 2.04 (1.0-4.6) Absolute Monos (auto) 1.18 (0.0-1.3) Lymphocytes % 18.8 L (24.0-44.0) % Monocytes % 10.9 (0.0-12.0) % Eosinophils % 1.1 (0.00-5.0) % Basophils % 0.3 (0.0-0.4) % Absolute Granulocytes 7.49 H (1.4-6.9) Basophils # 0.03 (0-0.4) Sodium 135 L (137-145) mmol/L Potassium 4.2 (3.5-5.1) mmol/L Chloride 105 (98-107) mmol/L Carbon Dioxide 24 (22-30) mmol/L Anion Gap 10.3 (5-15) MEQ/L BUN 12 (9-20) mg/dL Creatinine 0.85 (0.66-1.25) mg/dL Estimated GFR > 60.0 ML/MIN Glucose 102 (74-106) mg/dL Lactic Acid 0.9 (0.4-2.0) Calcium 8.8 (8.4-10.2) mg/dL Total Bilirubin 0.90 (0.2-1.3) mg/dL AST 34 (17-59) U/L ALT 49 (0-50) U/L Alkaline Phosphatase 114 (38-126) U/L Serum Total Protein 6.7 (6.3-8.2) g/dL Albumin 3.9 (3.5-5.0) g/dL Amylase 53 (30-110) U/L Lipase 59 (23-300) U/L Urine Color (YELLOW) Urine Appearance (CLEAR) Urine pH (5-6) Ur Specific [place] (1.005-1.025) Urine Protein (Negative) Urine Ketones (NEGATIVE) Urine Blood (0-5) Savage/ul Urine Nitrite (NEGATIVE) Urine Bilirubin (NEGATIVE) Urine Urobilinogen (0-1) mg/dL Ur Leukocyte Esterase (NEGATIVE) Urine WBC (Auto) (0-5) /HPF Urine RBC (Auto) (0-2) /HPF U Epithel Cells (Auto) (FEW) /HPF Urine Bacteria (Auto) (NEGATIVE) /HPF Urine Mucus (Auto) (NEGATIVE) /HPF Urine Culture Reflexed (NO) Urine Glucose (NEGATIVE) mg/dL 10/17/20 Range/Units 07:27 WBC (4.0-10.5) K/mm3 RBC (4.1-5.6) M/mm3 Hgb (12.5-18.0) gm/dl Hct (42-50) % MCV (78-100) fl MCH (26-32) pg MCHC (32-36) g/dl RDW (11.5-14.0) % Plt Count (150-450) K/mm3 MPV (7.5-11.0) fl Gran % (36.0-66.0) % Eos # (Auto) (0-0.5) Absolute Lymphs (auto) (1.0-4.6) Absolute Monos (auto) (0.0-1.3) Lymphocytes % (24.0-44.0) % Monocytes % (0.0-12.0) % Eosinophils % (0.00-5.0) % Basophils % (0.0-0.4) % Absolute Granulocytes (1.4-6.9) Basophils # (0-0.4) Sodium (137-145) mmol/L Potassium (3.5-5.1) mmol/L Chloride (98-107) mmol/L Carbon Dioxide (22-30) mmol/L Anion Gap (5-15) MEQ/L BUN (9-20) mg/dL Creatinine (0.66-1.25) mg/dL Estimated GFR ML/MIN Glucose (74-106) mg/dL Lactic Acid (0.4-2.0) Calcium (8.4-10.2) mg/dL Total Bilirubin (0.2-1.3) mg/dL AST (17-59) U/L ALT (0-50) U/L Alkaline Phosphatase (38-126) U/L Serum Total Protein (6.3-8.2) g/dL Albumin (3.5-5.0) g/dL Amylase (30-110) U/L Lipase (23-300) U/L Urine Color YELLOW (YELLOW) Urine Appearance CLEAR (CLEAR) Urine pH 7.0 (5-6) Ur Specific [place] 1.017 (1.005-1.025) Urine Protein NEGATIVE (Negative) Urine Ketones NEGATIVE (NEGATIVE) Urine Blood SMALL (0-5) Savage/ul Urine Nitrite NEGATIVE (NEGATIVE) Urine Bilirubin NEGATIVE (NEGATIVE) Urine Urobilinogen NEGATIVE (0-1) mg/dL Ur Leukocyte Esterase NEGATIVE (NEGATIVE) Urine WBC (Auto) 3-5 (0-5) /HPF Urine RBC (Auto) 6-10 (0-2) /HPF U Epithel Cells (Auto) NONE (FEW) /HPF Urine Bacteria (Auto) NONE SEEN (NEGATIVE) /HPF Urine Mucus (Auto) SLIGHT (NEGATIVE) /HPF Urine Culture Reflexed ORDERED SEPARATELY (NO) Urine Glucose NEGATIVE (NEGATIVE) mg/dL - Progress Progress: improved Progress Note: 10/17/20 09:02 Medical decision making: I spoke with the radiologist Dr. Sena regarding the results of this patient's CAT scan of the abdomen and pelvis (noncontrast). Compared to a CAT scan of the abdomen pelvis without contrast 2-1/2 years ago, there is hint of stranding near the left psoas muscle. There is diverticulosis but no evidence of diverticulitis. The patient is afebrile he does not have any evidence of pancreatitis or cholecystitis. We will write a prescription for antibiotics and a couple days of [place] pain medicine for this patient. He will follow up with his primary care physician Dr. Guerrero. Counseled pt/family regarding: lab results, diagnosis, need for follow-up, rad results - Departure Departure Disposition: Home Clinical Impression: Abdominal pain, Leukocytosis, unspecified Condition: Stable Critical Care Time: No Referrals: CLINTON JOHNSON [Primary Care Provider] - Additional Instructions: Drink plenty of fluids. Take your medication as prescribed. Call Dr. Guerrero's office today to make an appointment for next week. Prescriptions: Hydrocodone/APAP 5/325 [[place] 5/325 mg] 1 each PO Q8H PRN PRN #6 tablet MDD 3 PRN Reason: Pain Ciprofloxacin [Cipro 500 MG] 500 mg PO BID #14 tablet Metronidazole 500 mg [Flagyl 500 MG] 500 mg PO TID #21 tablet
[2020-10-17] MEDS ORDERED: Zofran 4 MG/2 ML VIAL ONE (07:22)
[2020-10-17] MEDS ORDERED: Sodium Chloride 0.9% 1000 ML 1,000 ML ONE (07:23)
[2020-10-17] MEDS ORDERED: Hydromorphone 1 mg/ml Injection ONE (07:23)
[2020-10-17 07:44] LABS: Absolute Neutrophil Ct (ANC) 7.49 (1.4-6.9); BASOPHIL % 0.3 % (0.0-0.4); Basophil (Absolute #) 0.03 (0-0.4); Eosinophil % 1.1 % (0.00-5.0); Eosinophil (Absolute #) 0.12 (0-0.5); Hematocrit 42.8 % (42-50); Hemoglobin 13.8 gm/dl (12.5-18.0); Lymphocyte (Absolute #) 2.04 (1.0-4.6); Lymphocytes % 18.8 % (24.0-44.0); Mean Cell Volume 86.5 fl (78-100); Mean Corpuscular Hemoglobin 27.9 pg (26-32); Mean Corpuscular Hgb Concent. 32.2 g/dl (32-36); Mean Platelet Volume 9.5 fl (7.5-11.0); Monocyte (Absolute #) 1.18 (0.0-1.3); Monocytes % 10.9 % (0.0-12.0); Neutrophil % 68.9 % (36.0-66.0); Platelet Count 213 K/mm3 (150-450); Red Blood Count 4.95 M/mm3 (4.1-5.6); Red Cell Distribution Width 12.8 % (11.5-14.0); White Blood Count 10.9 K/mm3 (4.0-10.5)
[2020-10-17 07:54] LABS: ALBUMIN 3.9 g/dL (3.5-5.0); ALKALINE PHOSPHATASE 114 U/L (38-126); AMYLASE 53 U/L (30-110); ANION GAP 10.3 MEQ/L (5-15); BLOOD UREA NITROGEN 12 mg/dL (9-20); CHLORIDE 105 mmol/L (98-107); Calcium 8.8 mg/dL (8.4-10.2); Carbon Dioxide 24 mmol/L (22-30); Creatinine 1 0.85 mg/dL (0.66-1.25); EST GLOMERULAR FILTRATION RATE > 60.0 ML/MIN; Glucose 102 mg/dL (74-106); LIPASE 59 U/L (23-300); Potassium 4.2 mmol/L (3.5-5.1); SGOT/AST 34 U/L (17-59); SGPT/ALT 49 U/L (0-50); SODIUM 135 mmol/L (137-145); Total Protein 6.7 g/dL (6.3-8.2)
[2020-10-17 08:02] LABS: Appearance CLEAR (CLEAR); Bilirubin NEGATIVE (NEGATIVE); Blood SMALL Ery/ul (0-5); Glucose NEGATIVE (NEGATIVE); Ketones NEGATIVE (NEGATIVE); Leukocyte Esterase NEGATIVE (NEGATIVE); Mucus SLIGHT /HPF (NEGATIVE); Nitrite NEGATIVE (NEGATIVE); Protein,Urine Dip NEGATIVE (Negative); Specific Gravity 1.017 (1.005-1.025); Urobilinogen NEGATIVE mg/dL (0-1)
[2020-10-17 08:03] LABS: Bacteria NONE SEEN /HPF (NEGATIVE)
[2020-10-17 09:03] VITALS: BP 146/87; PULSE 83
--- NOTE | 2020-10-17 09:24 | XRAY ---
Exam: CT of the abdomen and pelvis without IV contrast from 10/17/2020. CTDI: 7.23 mGy Comparison: CT of the abdomen and pelvis without IV contrast from 06/01/2018. Indication: 65-year-old male with lower abdominal pain since yesterday, chronic diarrhea. The patient has a history of prior appendectomy, 4 "back" surgeries, partial small bowel resection, and unspecified "bladder" surgery. Technique: Non-IV contrast axial images were obtained through the abdomen and pelvis. No oral contrast was given. The patient was unable to fully raise his right arm up out of the field of view of the upper abdomen. Reconstructed coronal and sagittal images were created and reviewed. Findings: Assessment of the solid organs is limited without the use of IV contrast. The visualized lung bases reveal a small subpleural calcification at the posterior left lung base representing no change. Minimal compression atelectasis is seen at the posterior right lung base. The heart size appears within normal limits. Some left coronary artery vascular calcification is seen on image #2. There is a mild left ventricular prominence. Minimal eventration of the anterior aspect of the right hemidiaphragm is seen. The liver appears of normal size and reveals no gross mass or intrahepatic biliary duct distention. The gallbladder is mildly distended on images #30 and #31, and there are several tiny soft tissue densities seen within the gallbladder neck of each equivocal but unknown significance. Certainly dense calcium is not seen within the gallbladder lumen. These could possibly represent tiny gallstones or sludge within the gallbladder neck. No gallbladder wall thickening is seen. The spleen appears unremarkable. No abnormality of the pancreas or adrenal glands is seen. I again see a 4.6 mm nonobstructing calculus within the posterior middle third of the left kidney representing no change from 06/01/2018. This is not causing obstruction. There is also a tiny calcification within the inferior pole of the left kidney which in retrospect is unchanged from 06/01/2018. No right renal calculus is seen. The remainder of the renal parenchyma appears unremarkable bilaterally on this noncontrast study. Prior proximal right ureteral stone on 06/01/2018 is no longer seen. The ureters can be followed throughout their course bilaterally and appear unremarkable. No ureterolith is seen. The urinary bladder is mostly contracted due to placement of a urinary Newman catheter with distal balloon. Mild atherosclerotic vascular calcification is seen within the abdominal aorta and iliac arteries. No abdominal aortic aneurysm or abnormal retroperitoneal lymphadenopathy is seen. Abundant intraperitoneal fat is seen. There is no free intraperitoneal air. A tiny fat-containing umbilical hernia is seen. The appendix is surgically absent. No bowel distention or definite bowel wall thickening is seen. I note mild diverticulosis without diverticulitis within the distal descending colon and throughout the sigmoid colon representing no change. No pelvic mass, abnormal pelvic lymphadenopathy, or free intraperitoneal fluid is seen. However, I note some subtle asymmetric stranding within the left pelvic sidewall just medial to the iliac vessels and tracking superiorly anterior to the left psoas muscle. This is not seen on the prior study from 06/01/2018. Again, there is no associated mass, and this does not appear to be related to the sigmoid colon. I am not sure what this represents. Perhaps it represents nonspecific inflammation or scarring. The seminal vesicles and prostate gland appear unremarkable. The inguinal regions reveal no abnormality. No definite abnormalities seen within the visualized perineum. Common femoral artery vascular calcification is seen. The skeleton again reveals evidence of prior kyphoplasty at L1 and L2. There appears to be interval L5-S1 surgery with placement of a posterior josse and 2 metallic screws on the right side. There are also several tiny punctate densities within the left aspect of L5-S1 which may relate to a spacer device. Correlate with surgical history. I believe there is bilateral spondylolysis at L5 without spondylolisthesis which is unchanged. Moderate to marked degenerative disc disease is again seen at L5-S1. Lower thoracic vertebral endplate spurring is seen. I see no fracture or aggressive bone lesion. Impression: 1. Prior 3 mm stone within the proximal right ureter on 06/01/2018 is no longer seen. There is no evidence of right renal calculus or ureterolith within either ureter on the current study. I again see a nonobstructing stone within the posterior middle third of the left kidney. There is also a tiny nonobstructing calcification within the inferior pole of the left kidney, best identified on coronal images #91 and #92. In retrospect, I believe this can be seen on coronal image #94 from 06/01/2018 (i.e. no change). 2. I note some new nonspecific linear stranding within the left pelvic sidewall tracking superiorly along the anterior aspect of the psoas muscle. This is new from 06/01/2018. This could relate to some inflammation/edema or scarring. Consider the possibility of a recently passed left renal stone. I see no mass or abscess. There is no free fluid within the pelvis. 3. A urinary Newman catheter balloon is seen within a collapsed urinary bladder. 4. Mild diverticulosis of the distal descending colon and throughout the sigmoid colon without evidence of acute diverticulitis. 5. The patient is status post appendectomy by history. This structure is not identified. 6. Question of several tiny soft tissue densities within the gallbladder neck. This is nonspecific. The possibility of some minimal biliary sludge or tiny noncalcified gallstones is not completely excluded. 7. No other acute process is seen within the abdomen or pelvis. 8. Evidence of prior lumbar surgery, as discussed above.
== END 2020-10-17 09:27 | disposition home or self-care (01) ==
LOC: ED 06:24
DX: R10.30 Lower abdominal pain, unspecified (principal); D72.829 Elevated white blood cell count, unspecified; I25.2 Old myocardial infarction; F17.210 Nicotine dependence, cigarettes, uncomplicated; Z87.442 Personal history of urinary calculi
CPT/HCPCS: 36000; 36415; 51702; 74176; 80053; 81001; 82150; 83605; 83690; 85025; 87086; 96360; 96374; 96375; 99284; J1170; J2405

== ENCOUNTER 2021-01-26 19:46 | Emergency (ER) | payer MEDICARE ==
--- NOTE | 2021-01-26 20:19 | ERPHSYRPT ---
- History of Present Illness Historian: patient Exam Limitations: other (Poor historian) Patient Subjective Stated Complaint: pt states "I have stomach pain around 3 today. I'm a frequent flier" Triage Nursing Assessment: pt came into the er via ambulance; pt is axo x4; pt is talkative; c/o rt abd pain; pt states that pain began at 1500 today; pt states that pain comes and goes; pt states 10/10 when abd starts; abd is firm, distended; active bowel sounds in all quads; pt states that he has a sharp pain in the RLQ that radiates to rt back; pt states he had a bowel movement prior to coming in; pt denies N/V; hypertensive Physician History: 65 yo wm w R flank/R mid-quadrant pain x 5 hours. Pain described as sharp and nothing makes better or worse. He denies N/V/D/fever/melena/hematochezia/dysuria/hematuria. He has had an appy/bowel resection. Pain is 3/10 at present but has been a 10. Timing/Duration: other (5hrs) Quality: stabbing Abdominal Pain Onset Location: other (R abdomen) Pain Radiation: no radiation Severity of Pain-Max: severe Severity of Pain-Current: none Modifying Factors: Improves With: nothing Associated Symptoms: No back, No chest pain, No diaphoresis, No diarrhea, No fever/chills, No fatigue, No headache, No heartburn, No loss of appetite, No nausea, No neck pain, No rash, No shortness of breath, No syncope, No vomiting, No weakness Previous symptoms: no prior history Allergies/Adverse Reactions: No Known Drug Allergies Allergy (Verified 10/17/20 06:43) Home Medications: No Reportable Medications [No Reported Medications] 01/26/21 [History] Hx Tetanus, Diphtheria Vaccination/Date Given: Yes Hx Influenza Vaccination/Date Given: No Hx Pneumococcal Vaccination/Date Given: No Travel Risk - International Travel Have you traveled outside of the country in past 3 weeks: No - Coronavirus Screening Are you exhibiting any of the following symptoms?: No Close contact with a COVID-19 positive Pt in past 14-21 Days: No - Vaccine Status Have you recieved a Covid-19 vaccination: No - Review of Systems Constitutional: No Symptoms Eyes: No Symptoms Ears, Nose, & Throat: No Symptoms Respiratory: No Symptoms Abdominal/Gastrointestinal: Abdominal Pain, No Nausea, No Vomiting, No Diarrhea, No Constipation, No Hematemesis, No Hematochezia, No Melena, No Dysphagia, No Appetite Changes Genitourinary Symptoms: No Symptoms Musculoskeletal: No Symptoms Skin: No Symptoms Neurological: No Symptoms Psychological: No Symptoms Endocrine: No Symptoms Hematologic/Lymphatic: No Symptoms Immunological/Allergic: No Symptoms - Past Medical History Pertinent Past Medical History: Yes Neurological History: No Pertinent History ENT History: No Pertinent History Cardiac History: No Pertinent History, Myocardial Infarction (VT), Other Respiratory History: No Pertinent History Endocrine Medical History: No Pertinent History Musculoskeletal History: No Pertinent History GI Medical History: No Pertinent History, GI Bleed History: No Pertinent History Psycho-Social History: No Pertinent History Male Reproductive Disorders: No Pertinent History Other Medical History: kidney stones x 3,mvp, reports heart attack years ago - Past Surgical History Past Surgical History: Yes Neuro Surgical History: No Pertinent History Cardiac: No Pertinent History Respiratory: No Pertinent History Gastrointestinal: Appendectomy, Bowel Surgery Genitourinary: Other Musculoskeletal: Orthopedic Surgery Male Surgical History: No Pertinent History Other Surgical History: Pt states "i had to have ,because of infection, some of my bowel and piece of the bladder removed and also appy at the same time". States "kyphoplasty L-3 and either L-1 or 2 2015. back surgery x4 - Social History Smoking Status: Former smoker How long have you smoked: 50 yrs Exposure to second hand smoke: No Drug Use: none Patient Lives Alone: No Significant Family History: no pertinent family hx - Nursing Vital Signs Nursing Vital Signs: Initial Vital Signs Temperature 98.1 F 01/26/21 19:49 Pulse Rate 82 01/26/21 19:49 Respiratory Rate 18 01/26/21 19:49 Blood Pressure 184/110 01/26/21 19:49 O2 Sat by Pulse Oximetry 96 01/26/21 19:49 Pain Scale Pain Intensity 3 Hypertensive - Physical Exam General Appearance: no apparent distress Eye Exam: PERRL/EOMI, eyes nml inspection Ears, Nose, Throat Exam: normal ENT inspection, TMs normal, pharynx normal, moist mucous membranes Neck Exam: normal inspection, non-tender, supple, full range of motion, No meningismus, No mass, No Brudzinski Respiratory Exam: normal breath sounds, lungs clear, airway intact Cardiovascular Exam: regular rate/rhythm, normal heart sounds, normal peripheral pulses, No murmur Gastrointestinal/Abdomen Exam: tenderness (Mild R mid-quadrant ttp), distention Back Exam: normal inspection, normal range of motion, No CVA tenderness Extremity Exam: normal inspection, normal range of motion Neurologic Exam: alert, oriented x 3, cooperative, bottler II-XII nml as tested, normal mood/affect, sensation nml, No motor deficits, No sensory deficit Skin Exam: normal color, warm, dry Lymphatic Exam: No adenopathy SpO2 Interpretation: normal SpO2: 96 O2 Delivery: Room Air - CT Exams Abdomen/Pelvis CT Interpretation: Tele-radiologist Report (Nothing acute/constipation) Ordered Tests: Active Orders 24 hr Category Date Time Status ABDOMEN AND PELVIS W/0 CONTRAS [CT] Stat Exams 01/26/21 21:36 Taken AMYLASE Stat Lab 01/26/21 20:25 Completed CBC W DIFF Stat Lab 01/26/21 20:25 Completed CMP Stat Lab 01/26/21 20:25 Completed LIPASE Stat Lab 01/26/21 20:25 Completed TROPONIN Q3H Lab 01/26/21 20:25 Completed TROPONIN Q3H Lab 01/26/21 23:15 Ordered TROPONIN Q3H Lab 01/27/21 02:15 Ordered TROPONIN Q3H Lab 01/27/21 05:15 Ordered TROPONIN Q3H Lab 01/27/21 08:15 Ordered UA W/RFX UR CULTURE Stat Lab 01/26/21 21:07 Completed Medication Summary Discontinued Medications Generic Name Dose Route Start Last Admin Trade Name Cecile PRN Reason Stop Dose Admin Ketorolac Tromethamine 30 mg 01/26/21 20:50 01/26/21 21:03 Toradol 30 Mg Injection IV 01/26/21 20:51 30 mg STAT ONE Administration Ketorolac Tromethamine Confirm 01/26/21 21:03 Toradol 30 Mg Injection Administered 01/26/21 21:04 Dose 30 mg .ROUTE .[facility] ONE Lab/Rad Data: Laboratory Result Diagrams 01/26/21 20:25 01/26/21 20:25 Laboratory Results 01/26/21 01/26/21 01/26/21 Range/Units 21:07 20:25 20:25 WBC (4.0-10.5) K/mm3 RBC (4.1-5.6) M/mm3 Hgb (12.5-18.0) gm/dl Hct (42-50) % MCV (78-100) fl MCH (26-32) pg MCHC (32-36) g/dl RDW (11.5-14.0) % Plt Count (150-450) K/mm3 MPV (7.5-11.0) fl Gran % (36.0-66.0) % Eos # (Auto) (0-0.5) Absolute Lymphs (auto) (1.0-4.6) Absolute Monos (auto) (0.0-1.3) Lymphocytes % (24.0-44.0) % Monocytes % (0.0-12.0) % Eosinophils % (0.00-5.0) % Basophils % (0.0-0.4) % Absolute Granulocytes (1.4-6.9) Basophils # (0-0.4) Sodium 137 (137-145) mmol/L Potassium 4.4 (3.5-5.1) mmol/L Chloride 104 (98-107) mmol/L Carbon Dioxide 26 (22-30) mmol/L Anion Gap 11.8 (5-15) MEQ/L BUN 16 (9-20) mg/dL Creatinine 1.13 (0.66-1.25) mg/dL Estimated GFR > 60.0 ML/MIN Glucose 98 (74-106) mg/dL Calcium 9.0 (8.4-10.2) mg/dL Total Bilirubin 0.40 (0.2-1.3) mg/dL AST 33 (17-59) U/L ALT 30 (0-50) U/L Alkaline Phosphatase 110 (38-126) U/L Troponin I < 0.012 (0.000-0.034) ng/mL Serum Total Protein 6.9 (6.3-8.2) g/dL Albumin 4.0 (3.5-5.0) g/dL Amylase 75 (30-110) U/L Lipase 147 (23-300) U/L Urine Color YELLOW (YELLOW) Urine Appearance CLEAR (CLEAR) Urine pH 5.0 (5-6) Ur Specific [place] 1.021 (1.005-1.025) Urine Protein NEGATIVE (Negative) Urine Ketones NEGATIVE (NEGATIVE) Urine Blood SMALL (0-5) [place]/ul Urine Nitrite NEGATIVE (NEGATIVE) Urine Bilirubin NEGATIVE (NEGATIVE) Urine Urobilinogen 2 (0-1) mg/dL Ur Leukocyte Esterase NEGATIVE (NEGATIVE) Urine WBC (Auto) NONE (0-5) /HPF Urine RBC (Auto) 0-2 (0-2) /HPF U Epithel Cells (Auto) NONE (FEW) /HPF Urine Bacteria (Auto) NONE (NEGATIVE) /HPF Urine Mucus (Auto) SLIGHT (NEGATIVE) /HPF Urine Culture Reflexed NO (NO) Urine Glucose NEGATIVE (NEGATIVE) mg/dL 01/26/21 Range/Units 20:25 WBC 7.4 (4.0-10.5) K/mm3 RBC 5.47 (4.1-5.6) M/mm3 Hgb 15.0 (12.5-18.0) gm/dl Hct 46.5 (42-50) % MCV 85.0 (78-100) fl MCH 27.4 (26-32) pg MCHC 32.3 (32-36) g/dl RDW 12.9 (11.5-14.0) % Plt Count 248 (150-450) K/mm3 MPV 9.3 (7.5-11.0) fl Gran % 50.5 (36.0-66.0) % Eos # (Auto) 0.15 (0-0.5) Absolute Lymphs (auto) 2.66 (1.0-4.6) Absolute Monos (auto) 0.83 (0.0-1.3) Lymphocytes % 35.8 (24.0-44.0) % Monocytes % 11.2 (0.0-12.0) % Eosinophils % 2.0 (0.00-5.0) % Basophils % 0.5 (0.0-0.4) % Absolute Granulocytes 3.74 (1.4-6.9) Basophils # 0.04 (0-0.4) Sodium (137-145) mmol/L Potassium (3.5-5.1) mmol/L Chloride (98-107) mmol/L Carbon Dioxide (22-30) mmol/L Anion Gap (5-15) MEQ/L BUN (9-20) mg/dL Creatinine (0.66-1.25) mg/dL Estimated GFR ML/MIN Glucose (74-106) mg/dL Calcium (8.4-10.2) mg/dL Total Bilirubin (0.2-1.3) mg/dL AST (17-59) U/L ALT (0-50) U/L Alkaline Phosphatase (38-126) U/L Troponin I (0.000-0.034) ng/mL Serum Total Protein (6.3-8.2) g/dL Albumin (3.5-5.0) g/dL Amylase (30-110) U/L Lipase (23-300) U/L Urine Color (YELLOW) Urine Appearance (CLEAR) Urine pH (5-6) Ur Specific [place] (1.005-1.025) Urine Protein (Negative) Urine Ketones (NEGATIVE) Urine Blood (0-5) [place]/ul Urine Nitrite (NEGATIVE) Urine Bilirubin (NEGATIVE) Urine Urobilinogen (0-1) mg/dL Ur Leukocyte Esterase (NEGATIVE) Urine WBC (Auto) (0-5) /HPF Urine RBC (Auto) (0-2) /HPF U Epithel Cells (Auto) (FEW) /HPF Urine Bacteria (Auto) (NEGATIVE) /HPF Urine Mucus (Auto) (NEGATIVE) /HPF Urine Culture Reflexed (NO) Urine Glucose (NEGATIVE) mg/dL - Progress Progress Note: 01/26/21 23:05 30mg IV toradol 01/26/21 23:07 Pt advised to try a laxative and to f/u with his PCP in 1-2 days. Counseled pt/family regarding: lab results, diagnosis, need for follow-up, rad results - Departure Departure Disposition: Home Clinical Impression: Abdominal pain, Constipation Condition: Stable Critical Care Time: No Referrals: CLINTON JOHNSON [NON-STAFF PHY W/O PRIVILEGES] - Instructions: Acute Abdomen (Belly Pain), Constipation, Adult (DC) Additional Instructions: Try a laxative like Miralax Follow up with your family MD in 1-2 days Return to ER for increasing pain or temperature greater than 100.5
[2021-01-26 20:34] LABS: Absolute Neutrophil Ct (ANC) 3.74 (1.4-6.9); BASOPHIL % 0.5 % (0.0-0.4); Basophil (Absolute #) 0.04 (0-0.4); Eosinophil (Absolute #) 0.15 (0-0.5); Hematocrit 46.5 % (42-50); Lymphocyte (Absolute #) 2.66 (1.0-4.6); Lymphocytes % 35.8 % (24.0-44.0); Mean Corpuscular Hemoglobin 27.4 pg (26-32); Mean Corpuscular Hgb Concent. 32.3 g/dl (32-36); Mean Platelet Volume 9.3 fl (7.5-11.0); Monocyte (Absolute #) 0.83 (0.0-1.3); Monocytes % 11.2 % (0.0-12.0); Neutrophil % 50.5 % (36.0-66.0); Platelet Count 248 K/mm3 (150-450); Red Blood Count 5.47 M/mm3 (4.1-5.6); Red Cell Distribution Width 12.9 % (11.5-14.0); White Blood Count 7.4 K/mm3 (4.0-10.5)
[2021-01-26 20:44] LABS: ALKALINE PHOSPHATASE 110 U/L (38-126); AMYLASE 75 U/L (30-110); ANION GAP 11.8 MEQ/L (5-15); BLOOD UREA NITROGEN 16 mg/dL (9-20); CHLORIDE 104 mmol/L (98-107); Carbon Dioxide 26 mmol/L (22-30); Creatinine 1 1.13 mg/dL (0.66-1.25); EST GLOMERULAR FILTRATION RATE > 60.0 ML/MIN; Glucose 98 mg/dL (74-106); LIPASE 147 U/L (23-300); Potassium 4.4 mmol/L (3.5-5.1); SGOT/AST 33 U/L (17-59); SGPT/ALT 30 U/L (0-50); SODIUM 137 mmol/L (137-145); Total Protein 6.9 g/dL (6.3-8.2)
[2021-01-26] MEDS ORDERED: TORAdol 30 mg Injection IV ONE (20:50)
[2021-01-26] MEDS ORDERED: TORAdol 30 mg Injection ONE (21:03)
[2021-01-26 21:16] LABS: Appearance CLEAR (CLEAR); Bilirubin NEGATIVE (NEGATIVE); Blood SMALL Ery/ul (0-5); Glucose NEGATIVE (NEGATIVE); Ketones NEGATIVE (NEGATIVE); Leukocyte Esterase NEGATIVE (NEGATIVE); Mucus SLIGHT /HPF (NEGATIVE); Nitrite NEGATIVE (NEGATIVE); Protein,Urine Dip NEGATIVE (Negative); RBC 0-2 /HPF (0-2); Specific Gravity 1.021 (1.005-1.025); Urobilinogen 2 mg/dL (0-1)
[2021-01-26 23:08] VITALS: O2SAT 96
[2021-01-26 23:25] VITALS: BP 194/127; PULSE 74
--- NOTE | 2021-01-27 08:50 | XRAY ---
Indication: Right flank/right lower quadrant pain. Multiple contiguous axial images obtained through the abdomen and pelvis without contrast. Comparison: October 17, 2020. Lung bases again demonstrates minimal fibrosis/scarring and tiny left base calcified granuloma. No infiltrate or effusion. Heart is not enlarged. Noncontrasted stomach and bowel loops nonobstructed with again the minimal descending/sigmoid diverticulosis. Again appendectomy reported. Stable nonobstructing left renal punctate calculi. No free fluid/air. Remaining liver, gallbladder, pancreas, spleen, adrenal glands, kidneys, ureters, and bladder are unremarkable for noncontrast exam. Stable moderate scattered aortoiliac calcifications without AAA. Osseous structures intact again with L1/L2 kyphoplasty and L5-S1 posterior fusion surgery. Impression: 1. Stable nonobstructing left renal micro-calculi, colonic diverticulosis, and chronic bony findings. 2. Remaining CT abdomen/pelvis without contrast exam is negative. Comment: Preliminary interpretation was made by [facility]. No critical discrepancy.
== END 2021-01-26 23:26 | disposition home or self-care (01) ==
LOC: ED 19:46
DX: R10.9 Unspecified abdominal pain (principal); K59.00 Constipation, unspecified; I25.2 Old myocardial infarction
CPT/HCPCS: 36415; 74176; 80053; 81001; 82150; 83690; 84484; 85025; 96374; 99284; J1885